=== PATIENT | male | born 1950 | race Caucasian/White ===

== ENCOUNTER 2025-02-12 16:36 | Emergency (ER) | payer MEDICARE, SELFPAY ==
--- NOTE | 2025-02-12 16:44 | USR_ITS ---
PROCEDURE INFORMATION: Exam: US Duplex Left Lower Extremity Veins, Limited Exam date and time: 02/12/2025 5:00 PM Age: 74 years old Clinical indication: Pain; Leg, lower; Left; Additional info: Pain swelling TECHNIQUE: Imaging protocol: Real-time duplex ultrasound of the left extremity with 2-D conklin scale, color Doppler flow and spectral waveform analysis including responses to compression and other maneuvers (when performed) with image documentation. Limited exam focused on the left lower extremity veins. COMPARISON: No relevant prior studies available. FINDINGS: Left deep veins: There is thrombus noted throughout the common femoral vein, superficial femoral vein, popliteal vein and the veins of the calf. Superficial veins: Greater saphenous vein at the saphenofemoral junction is patent without thrombus. Soft tissues: Unremarkable. US/CV venous duplex [facility] [id number] IMPRESSION: Positive DVT of the left leg.
--- OUTSIDE RECORDS SUMMARY | 2025-02-12 16:46 | XMS_ITS | Encounter Summary ---
Author Organization [facility] Address [address] [place] [address] Care Team Providers Care General Passenger Agent Name Role Phone Benjie Hernandez MD Primary Care Provider Encounter Details Date Type Department Care Team (Latest Contact Info) Description 10/07/1999 Outpatient Historical [facility] Family [place] [address] [address] [place] [phone] Jabari Moctezuma MD NO ADDRESS ON FILE Type I (juvenile type) diabetes mellitus without mention of complication, not stated as uncontrolled (CMS/HCC) (Primary Dx); Unspecified essential hypertension Social History Tobacco Use Types Packs/Day Years Used Date Smoking Tobacco: Never Assessed Sex and Gender Information Value Date Recorded Sex Assigned at Not on file 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 Gender Identity Not on file Sexual Orientation Not on file documented as of this encounter Plan of Treatment Not on file documented as of this encounter Visit Diagnoses Diagnosis Type I (juvenile type) 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
--- OUTSIDE RECORDS SUMMARY | 2025-02-12 16:46 | XMS_ITS | Encounter Summary ---
Author Organization [facility] Address [address] [place] [address] Care Team Providers Care Bank Teller Name Role Phone Bnejie Hernandez MD Primary Care Provider Encounter Details Date Type Department Care Team (Latest Contact Info) Description 01/08/2002 Outpatient Historical [facility] [place] [facility] [address] [address] [place] [phone] Jabari Moctezuma MD NO ADDRESS ON FILE DIABETES UNCOMPL CECE-TYPE I (CMS/HCC) (Primary Dx); HYPERTENSION NOS; AFTERCARE ASSISTED USE MEDICATN Social History Tobacco Use Types Packs/Day Years Used Date Smoking Tobacco: Never Assessed Sex and Gender Information Value Date Recorded Sex Assigned at Not on file 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 Gender Identity Not on file Sexual Orientation Not on file documented as of this encounter Plan of Treatment Not on file documented as of this encounter Visit Diagnoses Diagnosis Type I (juvenile type) diabetes mellitus without mention of complication, not stated as uncontrolled (CMS/HCC)- Primary Type I (juvenile type) diabetes mellitus without mention of complication, not stated as uncontrolled Unspecified essential hypertension Encounter for long-term (current) use of other medications documented in this encounter Care Teams Bank Teller Relationship Specialty Start Date End Date Benjie Hernandez MD [address] [place] [phone] PCP - General Family Practice 02/18/16 documented as of this encounter
--- OUTSIDE RECORDS SUMMARY | 2025-02-12 16:46 | XMS_ITS | Encounter Summary ---
Author Organization [facility] Address [address] [place] [address] Care Team Providers Care Flat Sorting Machine Clerk Name Role Phone Benjie Hernandez MD Primary Care Provider [phone] Encounter Details Date Type Department Care Team (Latest Contact Info) Description 06/05/2000 Outpatient Historical [facility] [place] [facility] [address] [address] [place] [phone] Jo Zee, DO [address] [place] [address] Acute sinusitis, unspecified (Primary Dx); Unspecified essential hypertension; Type I (juvenile type) diabetes mellitus without mention of complication, not stated as uncontrolled (CMS/HCC) Social History Tobacco Use Types Packs/Day Years Used Date Smoking Tobacco: Never Assessed Sex and Gender Information Value Date Recorded Sex Assigned at Not on file 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 Gender Identity Not on file Sexual Orientation Not on file documented as of this encounter Plan of Treatment Not on file documented as of this encounter Visit Diagnoses Diagnosis Acute sinusitis, unspecified- Primary Unspecified essential hypertension Type I (juvenile type) 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
--- OUTSIDE RECORDS SUMMARY | 2025-02-12 16:46 | XMS_ITS ---
Author Organization Unknown Results OrderDate OrderTestName ResultName ResultDate Value Units Range AbnormalFlag ResultStatus ObservationNotes TestCode ResultCode DateRecorded AccessionNumber DiagnosticSectionCode DiagnosticSectionName Sequence Interpretation Cust om 03/13/2024 13:20:00 HEMOSURE iFOB (FIT) BLOOD STL 2024-03-13 13:36:27.33 3 NEG 1 03/13/20 24 13:20:00
--- OUTSIDE RECORDS SUMMARY | 2025-02-12 16:46 | XMS_ITS | Clinical Summary ---
Author Organization [facility] Address [address] [facility] Attn: Epic Prelude ADT [place] [address] Care Team Providers Care Industrial Gas Servicer Supervisor Name Role Phone Benjie Hernandez MD Primary Care Provider [phone] Allergies No known active allergies Medications gemfibroziL (LOPID) 600 mg tablet Take 600 mg by mouth 2 times daily. 6 Active aspirin-acetami nophen-caffeine (EXCEDRIN EXTRA STRENGTH) 250-250-65 mg Tablet Take 1 Tablet by mouth every 4 hours as needed for Headaches. 6 Active terazosin (HYTRIN) 5 mg capsule Take 5 mg by mouth daily at bedtime. 6 Active insulin regular (HUMULIN R,NOVOLIN R) 100 unit/mL vial Inject by subcutaneous injection. 6 Active insulin glargine (LANTUS) 100 unit/mL pen syringe Inject by subcutaneous injection. 6 Active lisinopriL (PRINIVIL) 10 mg tablet Take 10 mg by mouth daily. 6 Active metFORMIN (GLUCOPHAGE) 1,000 mg tablet Take 1,000 mg by mouth 2 times daily with meals. 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 Gender Identity Not on file Sexual Orientation Not on file Last Filed Vital Signs Vital Sign Reading Time Taken Comments Blood Pressure 130/75 01/28/2016 12:59 PM CDT Pulse 62 01/28/2016 12:59 PM CDT Temperature - - Respiratory Rate - - Oxygen Saturation - - Inhaled Oxygen Concentration - - Weight 96.6 kg (213 lb) 01/28/2016 12:59 PM CDT Height 175.3 cm (5' 9 ) 01/28/2016 12:59 PM CDT Body Mass Index 31.45 01/28/2016 12:59 PM CDT Plan of Treatment Health Maintenance Due Date Last Done Comments DTAP/TDAP/TD VACCINES (1 - Tdap) 1969 COLORECTAL SCREENING 1995 Colorectal Cancer Screening 1995 FIT-DNA Q 3 years 1995 FIT/FOBT Q 1 year 1995 Flex Sig/CT Colonography Q 5 years 1995 PNEUMOCOCCAL VACCINE 50+ YEARS (1 of 1 - PCV) 06/13/20 00 ZOSTER VACCINE (1 of 2) 2000 INFLUENZA VACCINE (#1) 2025 RSV VACCINE (60+ or ) (1 - 1-dose 75+ series) 2025 Care Teams Industrial Gas Servicer Supervisor Relationship Specialty Start Date End Date Benjie Hernandez MD [address] [place] [phone] PCP - General Family Practice 02/18/16
--- OUTSIDE RECORDS SUMMARY | 2025-02-12 16:46 | XMS_ITS | Encounter Summary ---
Author Organization [facility] Address [address] [place] [address] Care Team Providers Care Boiler Coverer Name Role Phone Benjie Hernandez MD Primary Care Provider Encounter Details Date Type Department Care Team (Latest Contact Info) Description 09/20/1999 Outpatient Historical [facility] Family Medicine [place] [address] [address] [place] [phone] Jabari Moctezuma MD NO ADDRESS ON FILE Type I (juvenile type) diabetes mellitus without mention of complication, not stated as uncontrolled (CMS/HCC) (Primary Dx) Social History Tobacco Use Types Packs/Day Years Used Date Smoking Tobacco: Never Assessed Sex and Gender Information Value Date Recorded Sex Assigned at Not on file 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
--- OUTSIDE RECORDS SUMMARY | 2025-02-12 16:46 | XMS_ITS | Clinical Summary ---
Author Organization [facility] Address [address] [place] [address] Care Team Providers Care Instructor Weaving Name Role Phone Benjie Hernandez MD Primary Care Provider Allergies No known active allergies Medications aspirin-acetami nophen-caffeine (EXCEDRIN EXTRA STRENGTH) 250-250-65 mg Tablet Take 1 Tablet by mouth every 4 hours as needed for Headaches. Active terazosin (HYTRIN) 5 mg capsule Take 5 mg by mouth daily at bedtime. Active metFORMIN (GLUCOPHAGE) 1,000 mg tablet Take 1,000 mg by mouth 2 times daily with meals. Active gemfibrozil (LOPID) 600 mg tablet Take 600 mg by mouth 2 times daily. Active lisinopril (PRINIVIL) 10 mg tablet Take 10 mg by mouth daily. Active insulin glargine (LANTUS) 100 unit/mL pen syringe Inject by subcutaneous injection. Active insulin regular (HUMULIN R,NOVOLIN R) 100 unit/mL vial Inject by subcutaneous injection. 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
--- OUTSIDE RECORDS SUMMARY | 2025-02-12 16:46 | XMS_ITS | Encounter Summary ---
Author Organization [facility] Address [address] [facility] Attn: [place] [address] Care Team Providers Care Bricklayer Name Role Phone Benjie Hernandez MD Primary Care Provider Encounter Details Date Type Department Care Team (Late st Contact Info) Description 09/09/1999 Inpatient Historical Asia Abraham MD [address] [facility] [address] [place] [address] Social History Tobacco Use Types Packs/Day Years Used Date Smoking Tobacco: Never Assessed Sex and Gender Information Value Date Recorded Sex Assigned at Not on file 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
--- OUTSIDE RECORDS SUMMARY | 2025-02-12 16:46 | XMS_ITS | Encounter Summary ---
Author Organization [facility] Address [address] [place] [address] Care Team Providers Care Service Person Name Role Phone Benjie Hernandez MD Primary Care Provider Encounter Details Date Type Department Care Team (Latest Contact Info) Description 07/29/1999 Outpatient Historical [facility] Family Medicine [place] [address] [place] [phone] Jabari Moctezuma MD NO ADDRESS ON FILE Sprain of neck (Primary Dx) Social History Tobacco Use Types Packs/Day Years Used Date Smoking Tobacco: Never Assessed Sex and Gender Information Value Date Recorded Sex Assigned at Not on file 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
--- OUTSIDE RECORDS SUMMARY | 2025-02-12 16:46 | XMS_ITS | Encounter Summary ---
Author Organization [facility] Address [address] [place] [address] Care Team Providers Care Meter Attendant Name Role Phone Benjie Hernandez MD Primary Care Provider Encounter Details Date Type Department Care Team (Latest Contact Info) Description 09/09/1999 Outpatient Historical [facility] Family [place] [address] [place] [phone] Jabari Moctezuma MD NO ADDRESS ON FILE Acetonuria (Primary Dx); Hematuria; Tachycardia, unspecified; Other abnormal blood chemistry Social History Tobacco Use Types Packs/Day Years Used Date Smoking Tobacco: Never Assessed Sex and Gender Information Value Date Recorded Sex Assigned at Not on file 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
[2025-02-12 16:49] VITALS: BP 126/90; PULSE 117; RESP 16; TEMP 36.7; O2SAT 96; BMI 27.4
--- NOTE | 2025-02-12 17:28 | ECG_ITS ---
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
--- NOTE | 2025-02-12 17:28 | CTR_ITS ---
PROCEDURE INFORMATION: Exam: CTA Chest With Contrast Exam date and time: 02/12/2025 6:43 PM Age: 74 years old Clinical indication: Shortness of breath; Additional info: Dvt shortness of breath tachycardia TECHNIQUE: Imaging protocol: Computed tomographic angiography of the chest with contrast. Exam focused on the arteries. 3D rendering (Not supervised by radiologist): MIP and/or 3D reconstructed images were created by the technologist. Radiation optimization: All CT scans at this facility use at least one of these dose optimization techniques: automated exposure control; mA and/or kV adjustment per patient size (includes targeted exams where dose is matched to clinical indication); or iterative reconstruction. Contrast material: OMNIPAQUE 350; Contrast volume: 80 ml; Contrast route: INTRAVENOUS (IV); COMPARISON: No relevant prior studies available. RADIATION DOSE METRICS: Total DLP (mGy-cm): 373.87 FINDINGS: Pulmonary arteries: Several bilateral pulmonary emboli are visualized involving left upper lobar and segmental pulmonary arteries, left lower lobe segmental pulmonary arteries, and right middle and right lower lobar and segmental pulmonary arteries. Right upper segmental pulmonary arteries are also involved. Overall moderate clot burden. Aorta: Thoracic aorta is nonaneurysmal with mild atherosclerotic calcifications. Lungs: Mild bibasilar atelectasis. Ill-defined triangular opacity in the posterior basal right lower lobe. No focal consolidation or generalized interstitial process. No mass. Small sliding-type hiatal hernia. Pleural spaces: Unremarkable. No pneumothorax. No pleural effusion. Heart: Unremarkable. No cardiomegaly. No pericardial effusion. Heart RV/LV ratio: 0.95. Lymph nodes: Calcified mediastinal and hilar lymph nodes from prior granulomatous insult. Mildly enlarged right hilar lymph node measuring 1.1 cm short axis may be reactive. Gallbladder and biliary ducts: Cholelithiasis. Spleen: Calcified splenic granulomas. Bones/joints: Degenerative changes of the spine with multilevel anterior osteophytes. Soft tissues: Unremarkable. CT/CT angio chest PE protcl [id number] IMPRESSION: 1. Study positive for bilateral pulmonary emboli involving left upper and right middle and right lower lobar pulmonary arteries as well as segmental pulmonary arteries in all lobes of the lungs bilaterally. Overall moderate clot burden without definite CT evidence of right heart strain. 2. Ill-defined triangular opacity in the right lung base could represent atelectasis. Mild atypical infection/inflammation or developing pulmonary infarct not entirely excluded.
--- NOTE | 2025-02-12 17:32 | W.ED.EXTPRO ---
Documented by User: Heri Duncan DO 02/13/25 06:19 HPI - Extremity Problem General: Chief complaint: Extremity Problem,Nontraumatic Stated complaint: Left Leg Pain (Swelling and color turning) Time Seen by Provider: 02/12/25 16:43 History of Present Illness: 74-year-old male presents emergency room complaining of Pain and swelling that began 4 days ago he is also noticed some discoloration. He has had some unexpected shortness of breath with exertion although he denies any chest pain no history of PE or DVT in the past he is not on any anticoagulation. Associated symptoms: Deny chest pain, fever(s) or rash Related Data Previous Rx's ?Medication ?Instructions ?Recorded apixaban 5 mg (74 tabs) tablets in See Rx Instructions PO .COMPLEX 02/12/25 a dose pack (Eliquis DVT-PE Treat #74 ea 30D Start) Allergies Allergy/AdvReac Type Severity Reaction Status Date / Time No Known Allergies Allergy Verified 02/12/25 16:50 Review of Systems Const: Denies: fever(s) or chills Card: Reports: dyspnea on exertion; Denies: chest pain Resp: Reports: dyspnea GI: Denies: abdominal pain : Denies: dysuria, urinary frequency or urinary urgency Musc: Denies: neck pain or back pain Skin/Breast: Denies: rash Physical Exam Const: GENERAL APPEARANCE: cooperative ORIENTATION/CONSCIOUSNESS: Yes awake, Yes oriented to person, Yes oriented to place and Yes oriented to time HENMT: COMMON NORMALS: normocephalic, atraumatic and hearing grossly normal bilaterally HEAD & SCALP: normocephalic and atraumatic Resp: COMMON NORMALS: normal respiratory effort, No retractions, No use of accessory muscles and clear to auscultation bilaterally AUSCULTATION: clear to auscultation bilaterally Cardio: COMMON NORMALS: regular rate, regular rhythm and No murmurs present (Cardio) RATE: regular rate RHYTHM: regular rhythm GI: COMMON NORMALS: Soft to palpation and No hepatosplenomegaly present AUSCULTATION: Yes normoactive bowel sounds PALPATION: Yes Soft to palpation, No Tenderness to palpation present (GI), No Guarding due to palpation present (GI) and Yes No hepatosplenomegaly present Extremity: COMMON NORMALS: normal to inspection, capillary refill normal, no clubbing, cyanosis or edema, no calf tenderness and no pedal edema Neuro: SENSORIUM/ORIENTATION: Yes oriented to person, Yes oriented to place and Yes oriented to time Skin: COMMON NORMALS: no rashes or lesions noted GENERAL SKIN EXAM: no rashes or lesions noted Course Vital Signs: Vital signs: Vital Signs Temperature 98.1 F 02/12/25 16:49 Pulse Rate 91 02/12/25 21:15 Respiratory Rate 17 02/12/25 21:15 Blood Pressure 145/89 02/12/25 21:15 Pulse Oximetry 93 02/12/25 21:15 Oxygen Delivery Me thod Room Air 02/12/25 18:40 MDM - Extremity (Nontraumatic) Medical Decision Making Ultrasound shows extensive DVT left leg. Patient is complaining of shortness of breath with activity usually tolerates well and he is somewhat tachycardic. CTA of the chest is pending. Care signed out to Dr. Grijalva at change of shift. See final notes for diagnosis and disposition. Patient with lower extremity DVT and bilateral PEs. No evidence of right heart strain. Troponin is negative. Patient is feeling good and is already been started on Lovenox and will discharge patient home with Eliquis. Medical Records I reviewed the patient's medical records. Lab Data I reviewed the patient's lab results. 02/12/25 17:41 02/12/25 17:41 Radiology Impressions Venous Duplex 02/12/25 16:44 IMPRESSION: Positive DVT of the left leg. Chest CTA 02/12/25 17:28 IMPRESSION: 1. Study positive for bilateral pulmonary emboli involving left upper and right middle and right lower lobar pulmonary arteries as well as segmental pulmonary arteries in all lobes of the lungs bilaterally. Overall moderate clot burden without definite CT evidence of right heart strain. 2. Ill-defined triangular opacity in the right lung base could represent atelectasis. Mild atypical infection/inflammation or developing pulmonary infarct not entirely excluded. ADDENDUM: 02/12/252007 THIS REPORT CONTAINS FINDINGS THAT MAY BE CRITICAL TO PATIENT CARE. The findings were verbally communicated via telephone conference with DR. GRIJALVA at 8:07 PM CDT on 02/12/2025. The findings were acknowledged and understood. Laboratory Results WBC 10.48 10^3/uL (3.29-11.43) 02/12/25 17:41 RBC 4.92 10^6/uL (3.85-5.65) 02/12/25 17:41 Hgb 14.50 g/dL (11.27-16.99) 02/12/25 17:41 Hct 42.7 % (37-53) 02/12/25 17:41 MCV 86.8 fl (82-101) 02/12/25 17:41 MCH 29.5 pg (27-33) 02/12/25 17:41 MCHC 34.0 g/dL (30-55) 02/12/25 17:41 RDW 12.5 % (12.1-15.1) 02/12/25 17:41 Plt Count 184 10^3/cmm (157-399) 02/12/25 17:41 MPV 10.9 fL (7.4-10.4) H 02/12/25 17:41 Neut % (Auto) 68.9 % 02/12/25 17:41 Lymph % (Auto) 20.2 % 02/12/25 17:41 Cross % (Auto) 6.8 % 02/12/25 17:41 Eos % (Auto) 1.0 % 02/12/25 17:41 Baso % (Auto) 0.6 % 02/12/25 17:41 Neut # (Auto) 7.23 10^3/uL (1.8-7.7) 02/12/25 17:41 Lymph # (Auto) 2.1 10^3/uL (0.8-4.8) 02/12/25 17:41 Cross # (Auto) 0.7 10^3/uL (0.2-0.9) 02/12/25 17:41 Eos # (Auto) 0.1 10^3/uL (0.0-0.8) 02/12/25 17:41 Baso # (Auto) 0.1 10^3/uL (0.0-0.1) 02/12/25 17:41 Nucleated RBC % (auto) 0 % 02/12/25 17:41 Nucleated RBCs # 0.0 /100WBC 02/12/25 17:41 Sodium 139 mmol/L (136-145) 02/12/25 17:41 Potassium 4.3 mmol/L (3.5-5.1) 02/12/25 17:41 Chloride 102 mmol/L (98-107) 02/12/25 17:41 Carbon Dioxide 20 mmol/L (22-29) L 02/12/25 17:41 Anion Gap 21.3 (5-19) H 02/12/25 17:41 BUN 19 mg/dL (8-23) 02/12/25 17:41 Creatinine 1.3 mg/dL (0.7-1.2) H 02/12/25 17:41 GFR Calculation Not Reportable 02/12/25 17:41 Glucose 303 mg/dL (65-115) H 02/12/25 17:41 Calculated Osmolality 302 mOsm/kg (285-295) H 02/12/25 17:41 Calcium 9.2 mg/dL (8.5-10.5) 02/12/25 17:41 Total Bilirubin 0.6 mg/dL (0.15-1.2) 02/12/25 17:41 AST 15 U/L (0-40) 02/12/25 17:41 ALT 16 U/L (0-41) 02/12/25 17:41 Alkaline Phosphatase 71 U/L (40-130) 02/12/25 17:41 Troponin T Baseline 9 ng/L (0-15) 02/12/25 17:41 Troponin T 120 Minute 8.63 ng/L (0-15) 02/12/25 19:37 Delta Troponin T -0.37 ABS# (0-10) L 02/12/25 19:37 NT-Pro-B Natriuret Pep < 36 pg/mL (0-125) 02/12/25 17:41 Total Protein 7.2 g/dL (6.6-8.7) 02/12/25 17:41 Albumin 4.3 g/dL (3.5-5.2) 02/12/25 17:41 Globulin 2.9 g/dL (1.3-4.6) 02/12/25 17:41 Discharge Plan Discharge Patient Disposition: Home Clinical Impression: Deep vein thrombosis of lower extremity, Pulmonary embolism Condition: Stable Prescriptions: New Denae DVT-PE Treat 30D Start 5 mg (74 tabs) tablets,dose pack See Rx Instructions .ROUTE .COMPLEX Qty: 74 0RF Rx Instructions: orally per package directions Discharge Orders: Discharge ED (Routine); Ordered 02/12/25 Ordered By: Damian Grijalva Discharge Diet: Advance as tolerated Patient Instructions: Opioid Safety, Pain Management, Patient Portal & Jory Instructions Print Language: Polish Coding Level of Care Code ED Consumer Marketing Manager for [employer] Documented by User: Damian Grijalva MD 02/12/25 20:40 HPI - Extremity Problem General: Chief complaint: Extremity Problem,Nontraumatic Stated complaint: Left Leg Pain (Swelling and color turning) Time Seen by Provider: 02/12/25 16:43 Related Data Previous Rx's ?Medication ?Instructions ?Recorded apixaban 5 mg (74 tabs) tablets in See Rx Instructions PO .COMPLEX 02/12/25 a dose pack (Eliquis DVT-PE Treat #74 ea 30D Start) Allergies Allergy/AdvReac Type Severity Reaction Status Date / Time No Known Allergies Allergy Verified 02/12/25 16:50 Course Vital Signs: Vital signs: Vital Signs Temperature 98.1 F 02/12/25 16:49 Pulse Rate 91 02/12/25 21:15 Respiratory Rate 17 02/12/25 21:15 Blood Pressure 145/89 02/12/25 21:15 Pulse Oximetry 93 02/12/25 21:15 Oxygen Delivery Me thod Room Air 02/12/25 18:40 MDM - Extremity (Nontraumatic) Medical Decision Making Patient with lower extremity DVT and bilateral PEs. No evidence of right heart strain. Troponin is negative. Patient is feeling good and is already been started on Lovenox and will discharge patient home with Eliquis. Lab Data 02/12/25 17:41 02/12/25 17:41 Radiology Impressions Venous Duplex 02/12/25 16:44 IMPRESSION: Positive DVT of the left leg. Chest CTA 02/12/25 17:28 IMPRESSION: 1. Study positive for bilateral pulmonary emboli involving left upper and right middle and right lower lobar pulmonary arteries as well as segmental pulmonary arteries in all lobes of the lungs bilaterally. Overall moderate clot burden without definite CT evidence of right heart strain. 2. Ill-defined triangular opacity in the right lung base could represent atelectasis. Mild atypical infection/inflammation or developing pulmonary infarct not entirely excluded. ADDENDUM: 02/12/252007 THIS REPORT CONTAINS FINDINGS THAT MAY BE CRITICAL TO PATIENT CARE. The findings were verbally communicated via telephone conference with DR. GRIJALVA at 8:07 PM CDT on 02/12/2025. The findings were acknowledged and understood. Laboratory Results WBC 10.48 10^3/uL (3.29-11.43) 02/12/25 17:41 RBC 4.92 10^6/uL (3.85-5.65) 02/12/25 17:41 Hgb 14.50 g/dL (11.27-16.99) 02/12/25 17:41 Hct 42.7 % (37-53) 02/12/25 17:41 MCV 86.8 fl (82-101) 02/12/25 17:41 MCH 29.5 pg (27-33) 02/12/25 17:41 MCHC 34.0 g/dL (30-55) 02/12/25 17:41 RDW 12.5 % (12.1-15.1) 02/12/25 17:41 Plt Count 184 10^3/cmm (157-399) 02/12/25 17:41 MPV 10.9 fL (7.4-10.4) H 02/12/25 17:41 Neut % (Auto) 68.9 % 02/12/25 17:41 Lymph % (Auto) 20.2 % 02/12/25 17:41 Cross % (Auto) 6.8 % 02/12/25 17:41 Eos % (Auto) 1.0 % 02/12/25 17:41 Baso % (Auto) 0.6 % 02/12/25 17:41 Neut # (Auto) 7.23 10^3/uL (1.8-7.7) 02/12/25 17:41 Lymph # (Auto) 2.1 10^3/uL (0.8-4.8) 02/12/25 17:41 Cross # (Auto) 0.7 10^3/uL (0.2-0.9) 02/12/25 17:41 Eos # (Auto) 0.1 10^3/uL (0.0-0.8) 02/12/25 17:41 Baso # (Auto) 0.1 10^3/uL (0.0-0.1) 02/12/25 17:41 Nucleated RBC % (auto) 0 % 02/12/25 17:41 Nucleated RBCs # 0.0 /100WBC 02/12/25 17:41 Sodium 139 mmol/L (136-145) 02/12/25 17:41 Potassium 4.3 mmol/L (3.5-5.1) 02/12/25 17:41 Chloride 102 mmol/L (98-107) 02/12/25 17:41 Carbon Dioxide 20 mmol/L (22-29) L 02/12/25 17:41 Anion Gap 21.3 (5-19) H 02/12/25 17:41 BUN 19 mg/dL (8-23) 02/12/25 17:41 Creatinine 1.3 mg/dL (0.7-1.2) H 02/12/25 17:41 GFR Calculation Not Reportable 02/12/25 17:41 Glucose 303 mg/dL (65-115) H 02/12/25 17:41 Calculated Osmolality 302 mOsm/kg (285-295) H 02/12/25 17:41 Calcium 9.2 mg/dL (8.5-10.5) 02/12/25 17:41 Total Bilirubin 0.6 mg/dL (0.15-1.2) 02/12/25 17:41 AST 15 U/L (0-40) 02/12/25 17:41 ALT 16 U/L (0-41) 02/12/25 17:41 Alkaline Phosphatase 71 U/L (40-130) 02/12/25 17:41 Troponin T Baseline 9 ng/L (0-15) 02/12/25 17:41 Troponin T 120 Minute 8.63 ng/L (0-15) 02/12/25 19:37 Delta Troponin T -0.37 ABS# (0-10) L 02/12/25 19:37 NT-Pro-B Natriuret Pep < 36 pg/mL (0-125) 02/12/25 17:41 Total Protein 7.2 g/dL (6.6-8.7) 02/12/25 17:41 Albumin 4.3 g/dL (3.5-5.2) 02/12/25 17:41 Globulin 2.9 g/dL (1.3-4.6) 02/12/25 17:41 All radiology interpretation(s) finalized by discharge Discharge Plan Discharge Patient Disposition: Home Clinical Impression: Deep vein thrombosis of lower extremity, Pulmonary embolism Condition: Stable Prescriptions: [employer] DVT-PE Treat 30D Start 5 mg (74 tabs) tablets,dose pack See Rx Instructions .ROUTE .COMPLEX Qty: 74 0RF Rx Instructions: orally per package directions Discharge Orders: Discharge ED (Routine); Ordered 02/12/25 Ordered By: Damian Grijalva Discharge Diet: Advance as tolerated Patient Instructions: Opioid Safety, Pain Management, Patient Portal & Jory Instructions Print Language: Polish Coding Level of Care Code ED Consumer Marketing Manager for Fabio Lima
[2025-02-12 17:57] LABS: Hematocrit 42.7 % (37-53); Hemoglobin 14.50 g/dL (11.27-16.99); Mean Corpuscular HGB Conc 34.0 g/dL (30-55); Mean Corpuscular Hemoglobin 29.5 pg (27-33); Mean Corpuscular Volume 86.8 fl (82-101); Nucleated Red Blood Cells % 0 %; Platelet Count 184 10^3/cmm (157-399); Red Blood Count 4.92 10^6/uL (3.85-5.65); White Blood Count 10.48 10^3/uL (3.29-11.43)
[2025-02-12 18:17] LABS: Troponin(5th) Baseline 9 ng/L (0-15)
[2025-02-12 18:33] LABS: Alanine Aminotransferase 16 U/L (0-41); Albumin Level 4.3 g/dL (3.5-5.2); Alkaline Phosphatase 71 U/L (40-130); Aspartate Amino Transferase 15 U/L (0-40); Blood Urea Nitrogen 19 mg/dL (8-23); Calcium 9.2 mg/dL (8.5-10.5); Carbon Dioxide 20 mmol/L (22-29); Chloride 102 mmol/L (98-107); Creatinine Clr Calc Pharmacy 53.7076; Globulin 2.9 g/dL (1.3-4.6); Glucose 303 mg/dL (65-115); NT Pro B Type Natriuretic Pept < 36 pg/mL (0-125); Osmolality Calculated 302 mOsm/kg (285-295); Sodium 139 mmol/L (136-145); Total Protein 7.2 g/dL (6.6-8.7)
[2025-02-12 18:35] LABS: Anion Gap 21.3 (5-19); Potassium 4.3 mmol/L (3.5-5.1)
[2025-02-12 18:40] VITALS: BP 145/79; PULSE 108; O2SAT 98
[2025-02-12] MEDS: iohexol 350 mg/mL 500 mL Btl (per mL) IV (18:47)
[2025-02-12 19:00] VITALS: BP 146/80; PULSE 91; RESP 17; O2SAT 93
--- NOTE | 2025-02-12 19:28 | ECG_ITS ---
[facility] Date: 2025-02-12 Pat Name: Mathew Pagan Department: Room: Gender: Male Order Picker: : [phone] Requested By: Heri Galeano Order Number: [id number] Reading MD: Measurements Intervals [place] Rate: 97 P: 84 [place]: 181 QRS: -22 QRSD: 94 T: 137 QT: 345 QTc: 440 Interpretive Statements SINUS RHYTHM BORDERLINE LEFT AXIS DEVIATION [QRS AXIS < -20] NONSPECIFIC ST & T-WAVE ABNORMALITY Compared to ECG 02/12/2025 18:07:54 No significant changes [email or web address]
[2025-02-12 20:00] VITALS: BP 114/94; PULSE 94; RESP 17; O2SAT 94
[2025-02-12 20:26] LABS: Troponin 5 2HR 8.63 ng/L (0-15)
[2025-02-12 20:29] LABS: Troponin 5 2HR Delta -0.37 ABS# (0-10)
[2025-02-12 21:15] VITALS: BP 145/89; PULSE 91; RESP 17; O2SAT 93
== END 2025-02-12 21:10 | disposition home or self-care (01) ==
PROVIDERS: Family Medicine; Emergency Provider Emergency Medicine
DX: I82.412 Acute embolism and thrombosis of left femoral vein (principal); I82.432 Acute embolism and thrombosis of left popliteal vein; I82.492 Acute embolism and thrombosis of other specified deep vein of left lower extremity; I26.99 Other pulmonary embolism without acute cor pulmonale
CPT/HCPCS: 36415; 71275; 80053; 83880; 84484; 85025; 93005; 93010; 93971; 96372; 99285; J1650